=== PATIENT | female | born 1985 | race Caucasian/White ===

== ENCOUNTER 2019-07-23 17:37 | Emergency (ER) | payer BC ==
[~2019-07-23] VITALS: Ht 170.2 cm; Wt 145.5 kg
[2019-07-23 17:37] VITALS: BP 125/59
[~2019-07-23 17:37] MED LIST: HYDR-2155 PO; IBUP800T19 PO
--- NOTE | 2019-07-23 17:57 | PHYS DOC ---
Past History Past Medical History: Anxiety, Asthma, Bipolar Past Surgical History: No Surgical History Alcohol Use: Occasionally Drug Use: None Adult General Chief Complaint Chief Complaint: COUGH .." I ve been sick since Sunday....I was up in [place] for a .... I was in contact with my [id number]... And he is on 3 day wait list for testing for coronavirus... Because he was in charge of [employer].. and one students had tested positive... he said since I was up there to gect checked in nearest ED..." [facility] HPI Patient is a 34 year old female who presents with above hx and complaints of increased cough, some sputum production, wheezing, mildly sore throat and using her asthma inhaler up to 3 times a day. Patient has not had any fever. Does have a history of asthma. Has been used an inhaler albuterol 3 times a day. Patient does not know her best peak flow. Patient has never been hospitalized for asthma exasperation. Patient did get a flu vaccination this season. No recent overseas travel. but did travel to [place] for a . Patient does work at [employer]. Patient has not been on steroids recently. No history immunosuppression. Pt. follows with Dr. Veronica Villeda. Review of Systems Review of Systems Constitutional: Denies fever or chills [] Eyes: Denies change in visual acuity, redness, or eye pain [] HENT: Complains of nasal congestion and sore throat [] Respiratory: Complaints of cough and increased wheezing Cardiovascular: No additional information not addressed in HPI [] GI: Denies abdominal pain, nausea, vomiting, bloody stools or diarrhea [] : Denies dysuria or hematuria [] Musculoskeletal: Denies back pain or joint pain [] Integument: Denies rash or skin lesions [] Neurologic: Denies headache, focal weakness or sensory changes [] Endocrine: Denies polyuria or polydipsia [] All other systems were reviewed and found to be within normal limits, except as documented in this note. Family History Family History Noncontributory to presentation. At patient's [id number]-obe had contact with a coronal virus positive student in [place]. Current Medications Current Medications See nursing for home meds Allergies Allergies Allergies Coded Allergies Type Severity Reaction Last Updated Verified terbutaline Allergy Intermediate Rash 10/25/14 Yes Has a allergy to Demerol as an allergy Physical Exam Physical Exam Constitutional: , no acute distress, non-toxic appearance. [] HENT: Normocephalic, atraumatic, bilateral external ears normal, oropharynx moist, no oral exudates, nose normal. [] Eyes: PERRLA, EOMI, conjunctiva normal, no discharge. Glasses Neck: Normal range of motion, no tenderness, supple, no stridor. [] Cardiovascular:Heart rate regular rhythm, no murmur [] Lungs & Thorax: Bilateral breath sounds equal apex with scattered wheezes on auscultation [] Abdomen: Bowel sounds normal, soft, no tenderness, no masses, no pulsatile masses. [] Morbid obesity. Skin: Warm, dry, no erythema, no rash. [] Back: No tenderness, no CVA tenderness. [] Extremities: No tenderness, no cyanosis, no clubbing, ROM intact, trace ankle edema. [] Neurologic: Alert and oriented X 3, normal motor function, normal sensory function, no focal deficits noted. [] Psychologic: Affect anxious, judgement normal, mood normal. [] EKG EKG [] Radiology/Procedures Radiology/Procedures [][place] [address] IMAGING REPORT Signed PATIENT: ANU FRASERUNT: [id number] : 1985 LOCATION: ER AGE: 34 SEX: F EXAM STATUS: REG ER ORD. PHYSICIAN: DINO CAMPUZANO MD REASON: asthma, cough with productive sputum, travel [place]-19 ? Exposure? PROCEDURE: CHEST PA & LATERAL Exam: Chest 2 views INDICATION: Asthma, cough with productive sputum, travel TECHNIQUE: Frontal and lateral views the chest Comparisons: None FINDINGS: The cardiomediastinal silhouette and pulmonary vessels are within normal limits. Mild bronchial wall thickening is noted. No focal consolidation. No pleural effusion. IMPRESSION: Mild bronchial wall thickening, may represent small airways disease. FOR INTERNAL CODING PURPOSES Critical result: Findings discussed with DINO CAMPUZANO at 07/23/2019 7:08 PM. RESULT CODE: (C) Electronically signed by: Sanjuana Benson MD (07/23/2019 7:08 PM) [id number] DICTATED AND SIGNED BY: SANJUANA BENSON MD DATE: 07/23/191907 CC: DINO CAMPUZANO MD; VERONICA VILLEDA MD ~ Course & Med Decision Making Course & Med Decision Making Pertinent Labs and Imaging studies reviewed. (See chart for details) Patient get adequate rest. Patient push fluids. Take Tylenol and ibuprofen for discomfort and fevers. Patient take Bactrim DS twice day for 7 days. Patient to use MDI 2 puffs 4 times a day. Patient take prednisone 50 mg a day. Patient follow-up primary care. Patient return if any concerns. Impression: 1. Asthma Exacerbation 2. Urinary Tract Infection 3. Viral Syndrome. [] Dragon Disclaimer Dragon Disclaimer This electronic medical record was generated, in whole or in part, using a voice recognition dictation system. Departure Departure: Disposition: HOME/RESIDENCE PRIOR TO ADM Condition: STABLE Referrals: VERONICA VILLEDA MD (PCP) Scripts Sulfamethoxazole/Trimethoprim (BACTRIM DS TABLET) 1 Each Tablet 1 TAB PO BID for UTI for 7 Days, #14 TAB 0 Refills Prov: DINO CAMPUZANO MD 07/23/19 Albuterol Sulfate (VENTOLIN HFA INHALER) 18 Gm Hfa.aer.ad 2 PUFF IH PRN Q4HRS PRN for FOR ASTHMA for 30 Days, INHALER 0 Refills Prov: DINO CAMPUZANO MD 07/23/19 Prednisone (PREDNISONE) 50 Mg Tablet 50 MG PO DAILY for reactive air way for 5 Days, #5 TAB Prov: DINO CAMPUZANO MD 07/23/19 Dragon Disclaimer This chart was dictated in whole or in part using Voice Recognition software in a busy, high-work load, and often noisy Emergency Department environment. It may contain unintended and wholly unrecognized errors or omissions. DINO CAMPUZANO MD Jul 23, 2019 17:57
[2019-07-23] MEDS ORDERED: predniSONE 10 MG TABLET PO ONE (18:00)
[2019-07-23] MEDS ORDERED: IPRATRPIUM/ALBUTEROL 0.5/2.5MG 3 ML NEBU. NEB ONE (18:15)
[2019-07-23] MEDS ORDERED: ALBU2.5V8 IH (18:23)
[2019-07-23] MEDS ORDERED: PRED50TA PO (18:23)
[2019-07-23 18:40] LABS: INFLUENZA A PATIENT NEGATIVE (NEGATIVE); INFLUENZA B PATIENT NEGATIVE (NEGATIVE)
[2019-07-23 19:01] LABS: BARBITURATES NEG (NEG); BENZODIAZEPINES NEG (NEG); CANNABINOIDS NEG (NEG); COCAINE NEG (NEG); METHADONE NEG (NEG); OPIATES NEG (NEG); PHENCYCLIDINE NEG (NEG)
[2019-07-23 19:02] LABS: AMPHETAMINE/METHAMPHETAMINE NEG (NEG)
[2019-07-23 19:07] LABS: BILIRUBIN,URINE NEG (NEG); CLARITY,URINE HAZY; COLOR,URINE YELLOW; GLUCOSE,URINE NEG (NEG)
[2019-07-23 19:08] LABS: BACTERIA,URINE FEW /HPF (0-FEW); NITRITE,URINE NEG (NEG); SQUAMOUS EPITHELIAL CELL,UR MANY /LPF; UROBILINOGEN,URINE 0.2 mg/dL (0.2 mg/dL)
--- NOTE | 2019-07-23 19:11 | RAD ---
Exam: Chest 2 views INDICATION: Asthma, cough with productive sputum, travel TECHNIQUE: Frontal and lateral views the chest Comparisons: None FINDINGS: The cardiomediastinal silhouette and pulmonary vessels are within normal limits. Mild bronchial wall thickening is noted. No focal consolidation. No pleural effusion. IMPRESSION: Mild bronchial wall thickening, may represent small airways disease. FOR INTERNAL CODING PURPOSES Critical result: Findings discussed with DINO CAMPUZANO at 07/23/2019 7:08 PM. RESULT CODE: (C) Electronically signed by: Sanjuana Romero MD (07/23/2019 7:08 PM) [id number]
[2019-07-23] MEDS ORDERED: SULF1TAB24 PO (19:54)
[2019-07-23] MEDS ORDERED: SMZ/TMP 800/160MG TABLET. PO ONE (20:00)
== END 2019-07-23 20:20 | disposition home or self-care (01) ==
LOC: ER 17:37
DX: J45.901 Unspecified asthma with (acute) exacerbation (principal); N39.0 Urinary tract infection, site not specified; B34.9 Viral infection, unspecified; Z88.8 Allergy status to other drugs, medicaments and biological substances
CPT/HCPCS: 36415; 71046; 80307; 81001; 81025; 87070; 87086; 87804; 87880; 94640; J7512; 99284-25

== ENCOUNTER 2020-10-31 19:29 | Emergency (ER) | payer OTHER, MEDICAID ==
[~2020-10-31] VITALS: Ht 170.2 cm; Wt 150.0 kg
[~2020-10-31 19:29] MED LIST changes: +ALBU2.5V8 IH; +PRED50TA PO; +SULF1TAB24 PO
--- NOTE | 2020-10-31 21:33 | PHYS DOC ---
Past History Past Medical History: Anxiety, Asthma, Bipolar Past Surgical History: Tubal ligation, Other Alcohol Use: Occasionally Drug Use: None General Adult EDM: Chief Complaint: ANKLE PROBLEM HPI: HPI: ".. I stepped into a uncovered drain at [employer] were I work ..and it was about 6pm.. and it still hurts and swollen...Can't hardly bear wt,on it.." Patient is a 35 year old female who presents with above hx and complaints of right ankle / Foot injury while workilng at [employer]. Patient's right foot and ankle are obviously swollen. Stressing of right ankle does have increased pain with inversion and foot squeeze. No upper leg tenderness. Distal capillary refill is equal to left foot. Patient has been attempting use ice to reduce the swelling. Patient has past medical history of anxiety, asthma, bipolar disorder, no history immunosuppression. No history of travel. No history of ill contacts. Pt. follow s with Dr. Villdea as primary Review of Systems: Review of Systems: Constitutional: Denies fever or chills Eyes: Denies change in visual acuity HENT: Denies nasal congestion or sore throat Respiratory: Denies cough or shortness of breath Cardiovascular: Denies chest pain or edema GI: Denies abdominal pain, nausea, vomiting, bloody stools or diarrhea : Denies dysuria Musculoskeletal: Complains of marked Integument: Denies rash Neurologic: Denies headache, focal weakness or sensory changes Endocrine: Denies polyuria or polydipsia Lymphatic: Denies swollen glands Psychiatric: Denies depression or anxiety Family History: Family History: Noncontributory to presentation Current Medications: Current Meds: See nursing for home meds Allergies: Allergies: Allergies Coded Allergies Type Severity Reaction Last Updated Verified terbutaline Allergy Intermediate Rash 10/25/14 Yes Physical Exam: PE: Constitutional: inacute distress, non-toxic appearance. [] HENT: Normocephalic, atraumatic, bilateral external ears normal, oropharynx moist, no oral exudates, nose normal. [] Eyes: PERRLA, EOMI, conjunctiva normal, no discharge. [] Neck: Normal range of motion, no tenderness, supple, no stridor. [] Cardiovascular:Heart rate regular rhythm, no murmur [] Lungs & Thorax: Bilateral breath sounds clear to auscultation [] Abdomen: Bowel sounds normal, soft, no tenderness, no masses, no pulsatile masses. Obese Skin: Warm, dry, no erythema, no rash. [] Back: No tenderness, no CVA tenderness. [] Extremities: No tenderness, no cyanosis, no clubbing, ROM intact, no edema. [] Except findings in right foot and ankle as per HPI Neurologic: Alert and oriented X 3, normal motor function, normal sensory function, no focal deficits noted. [] Psychologic: Affect anxious, judgement normal, mood normal. [] EKG: EKG: [] Radiology/Procedures: Radiology/Procedures: [][place] [address] IMAGING REPORT Signed PATIENT: ANU FRASER JACCOUNT: [id number] : 1985 LOCATION: ER AGE: 35 SEX: F EXAM STATUS: REG ER ORD. PHYSICIAN: DINO CAMPUZANO MD REASON: twisted at work PROCEDURE: FOOT RIGHT 3V XR EXAM OF ANKLE_RIGHT 3VIEWS, XR FOOT_RIGHT 3 VIEWS DATE: 10/31/2020 10:37 PM INDICATION: Reason: twisted at work / Spl. Instructions: / History: COMPARISON: None. FINDINGS: Bones: There is no evidence of acute fracture or dislocation. Joints: The ankle mortise is congruent. No widening of the distal tibiofibular syndesmosis. Miscellaneous: None. IMPRESSION: No evidence of acute ankle or foot fracture. Electronically signed by: Giancarlo Salgado MD (11/01/2020 2:42 AM) [facility] DICTATED AND SIGNED BY: GIANCARLO SALGADO MD DATE: 11/01/20 0238 CC: DINO CAMPUZANO MD; KENISHA VILLEDA MD ~MTH0 0 Heart Score: C/O Chest Pain: N/A Risk Factors: Risk Factors: DM, Current or recent (<one month) smoker, HTN, HLP, family history of CAD, obesity. Risk Scores: Score 0 - 3: 2.5% MACE over next 6 weeks - Discharge Home Score 4 - 6: 20.3% MACE over next 6 weeks - Admit for Clinical Observation Score 7 - 10: 72.7% MACE over next 6 weeks - Early Invasive Strategies Course & Med Decision Making: Course & Med Decision Making Pertinent Labs and Imaging studies reviewed. (See chart for details) Patient follow-up work comp. Patient wear splint. Patient use crutches. Patient to use ice as needed for the next 2 or 3 days. Keep foot elevated. Take Tylenol and ibuprofen for pain. Follow-up primary care. But must follow- up work comp. If continued pain ryan-ray in 2 weeks for possible missed fr acture. Impression: 1. Right foot and ankle sprain [] Tonie Disclaimer: Tonie Disclaimer: This electronic medical record was generated, in whole or in part, using a voice recognition dictation system. Departure Departure: Referrals: KENISHA VILLEDA MD (PCP) Tonie Disclaimer This chart was dictated in whole or in part using Voice Recognition software in a busy, high-work load, and often noisy Emergency Department environment. It may contain unintended and wholly unrecognized errors or omissions. DINO CAMPUZANO MD Oct 31, 2020 21:33
[2020-10-31 21:35] VITALS: BP 121/72
[2020-10-31] MEDS: oxyCODONE/APAP 5/325 1 TAB TABLET PO ONE (22:50)
[2020-10-31] MEDS: IBUPROFEN 600 MG TABLET. PO ONE (22:50)
--- NOTE | 2020-11-01 02:45 | RAD ---
XR EXAM OF ANKLE_RIGHT 3VIEWS, XR FOOT_RIGHT 3 VIEWS DATE: 10/31/2020 10:37 PM INDICATION: Reason: twisted at work / Spl. Instructions: / History: COMPARISON: None. FINDINGS: Bones: There is no evidence of acute fracture or dislocation. Joints: The ankle mortise is congruent. No widening of the distal tibiofibular syndesmosis. Miscellaneous: None. IMPRESSION: No evidence of acute ankle or foot fracture. Electronically signed by: Phuc Salgado MD (11/01/2020 2:42 AM) [facility]
== END 2020-11-01 02:28 | disposition home or self-care (01) ==
LOC: ER 19:29
DX: S93.401A Sprain of unspecified ligament of right ankle, initial encounter (principal); J45.909 Unspecified asthma, uncomplicated; Z88.8 Allergy status to other drugs, medicaments and biological substances; X50.9XXA Other and unspecified overexertion or strenuous movements or postures, initial encounter; Y93.89 Activity, other specified; Y92.89 Other specified places as the place of occurrence of the external cause; Y99.0 Civilian activity done for income or pay
CPT/HCPCS: 29515; 73610; 73630; 99284